=== PATIENT | male | born 2000 | race American Indian/Alaskan Native ===

== ENCOUNTER 2022-05-28 03:14 | Emergency (ER) | payer OTHER ==
[2022-05-28] MEDS ORDERED: HYDROcodone/ACETAMINOPHEN 5-325 MG TAB PO ONE (06:28)
--- NOTE | 2022-05-28 06:31 | Event Note ---
ED Screening Note ED Screening Note: 21-year-old male presents to the emergency department with a bleeding in his left buttock. Patient did undergo some surgical removal of the lesion which was packed by an outpatient surgeon 2 days ago. Bleeding is profuse unable to control with pressure. This initial assessment/diagnostic orders/clinical plan/treatment(s) is/are subject to change based on patients health status, clinical progression and re- assessment by fellow clinical providers in the ED. Further treatment and workup at subsequent clinical providers discretion. Patient/guardian urged not to elope from the ED as their condition may be serious if not clinically assessed and managed. Initial orders include:
[2022-05-28 07:55] LABS: Hematocrit 46.9 % (35.5-45.6); Hemoglobin 15.3 gm/dl (11.8-15.2); Mean Corpuscular HGB Conc 33 % (32-34); Mean Corpuscular Volume 88 fl (84-94); Platelet Count 201 K/mm3 (140-440); Red Blood Count 5.34 M/mm3 (3.65-5.03); Red Cell Distribution Width 13.4 % (13.2-15.2)
[2022-05-28 08:04] LABS: INR 0.91 (0.87-1.13)
[2022-05-28 08:12] LABS: BUN/Creatinine Ratio 14; Blood Urea Nitrogen 15 mg/dL (9-20); Calcium 9.1 mg/dL (8.4-10.2); Hemolysis Index 7
--- NOTE | 2022-05-28 09:28 | Cat Scan Report ---
CT PELVIS WITH CONTRAST HISTORY: post op pain, hemmorrhage left buttock. Patient had an abscess removed on Monday and remov ed the packing Monday, persistent bleeding COMPARISON: None. TECHNIQUE: CT images of the pelvis were obtained following administration of intravenous contrast. A ll CT scans at this location are performed using CT dose reduction for ALARA by means of automated ex posure control. CONTRAST: 90 ml of intravenous contrast administered. FINDINGS: Pelvis: Small residual subcutaneous abscess/hematoma along the medial proximal left thigh measuring essentially 3 x 3 cm on image 121 of series 3, with adjacent skin induration and subcutaneous strandi ng. No other abnormality identified. The visualized colon, urinary bladder and prostate appear unremarkable with no pelvic free fluid. No acute osseous abnormality identified. IMPRESSION: 1. Residual medial left thigh abscess/hematoma as above. Signer Name: Ok Kamara MD Signed: 05/28/2022 9:24 AM Workstation Name: [id number]
--- NOTE | 2022-05-28 14:17 | Emergency Department Report ---
ED General Adult HPI - General Chief complaint: Wound/Laceration Stated complaint: WOUND BLEED Time Seen by Provider: 05/28/22 14:10 Source: patient Mode of arrival: Ambulatory Limitations: No Limitations - History of Present Illness Initial comments: 21-year-old male presents emerged department status post since incision and drainage of abscess to his left gluteal/upper thigh region by an outpatient surgery facility about 50 miles away from here. States that he was advised to remove the packing after 2 days which he had removed as advised since removal has been steadily bleeding from the incision site despite his efforts to control. Reports no presyncope, no headache, numbness, no dizziness, no pelvic pain, no nausea, no vomiting. -: Gradual Radiation: non-radiation Quality: dull Improves with: none Worsens with: none Associated Symptoms: denies other symptoms ED Review of Systems ROS: Stated complaint: WOUND BLEED Other details as noted in HPI Comment: All other systems reviewed and negative ED Past Medical Hx - Social History Smoking Status: Never Smoker Substance Use Type: None ED Physical Exam - General Limitations: No Limitations General appearance: alert, in no apparent distress - Head Head exam: Present: atraumatic, normocephalic - Eye Eye exam: Present: normal appearance, PERRL, EOMI Pupils: Present: normal accommodation - ENT ENT exam: Present: mucous membranes moist - Neck Neck exam: Present: normal inspection - Respiratory Respiratory exam: Present: normal lung sounds bilaterally. Absent: respiratory distress - Cardiovascular Cardiovascular Exam: Present: regular rate, normal rhythm. Absent: systolic murmur, diastolic murmur, rubs, gallop - GI/Abdominal GI/Abdominal exam: Present: soft, normal bowel sounds - Rectal Rectal exam: Present: deferred - Extremities Exam Extremities exam: Present: normal inspection - Back Exam Back exam: Present: normal inspection - Neurological Exam Neurological exam: Present: alert, oriented X3 - Psychiatric Psychiatric exam: Present: normal affect, normal mood - Skin Skin exam: Present: warm, dry. Absent: intact, normal color, rash - Expanded Skin Exam Expanded 1 - Abscess incision site. Hematoma present wound has been manipulated no obvious profuse bleeding is present. ED Course Vital Signs 05/28/22 05/28/22 03:27 16:24 Temperature 97.8 F 98.3 F Pulse Rate 95 H 90 Respiratory 18 18 Rate Blood Pressure 114/73 Blood Pressure 121/81 [Left] O2 Sat by Pulse 100 98 Oximetry - Reevaluation(s) Reevaluation #1: 05/28/22 14:24 Case was discussed with the attending Dr. Monge who also had [id number] and evaluated the wound plan is to pack it with platelet treated packing and have follow-up with his general surgeon ED Medical Decision Making - Lab Data Result diagrams: 05/28/22 07:02 05/28/22 07:02 Critical care attestation.: If time is entered above; I have spent that time in minutes in the direct care of this critically ill patient, excluding procedure time. ED Disposition Clinical Impression: Hematoma of surgical wound of skin after surgical procedure Disposition: 01 HOME / SELF CARE / HOMELESS Is pt being admited?: No Does the pt Need Aspirin: No Condition: Stable Additional Instructions: You were seen evaluate emergency department for wound reevaluation after incision and drainage of an abscess resulting and bleeding post packing removal. Bleeding was controlled with a platelet rich dressing and and pressure Referrals: JOSE ROSARIO MD [Primary Care Provider] - 3-5 Days
[2022-05-28 16:25] VITALS: BP 121/81
== END 2022-05-28 16:32 | disposition home or self-care (01) ==
LOC: ED 03:14
DX: S30.0XXA Contusion of lower back and pelvis, initial encounter (principal); Z79.899 Other long term (current) drug therapy; X58.XXXA Exposure to other specified factors, initial encounter; Y93.89 Activity, other specified; Y92.89 Other specified places as the place of occurrence of the external cause; Y99.8 Other external cause status
CPT/HCPCS: 36415; 72193; 80048; 85027; 85610; 99284; Q9967